=== PATIENT | male | born 1940 | race Caucasian/White ===

== ENCOUNTER → 2024-01-19 10:42 | Outpatient (BNVA) | payer MEDICARE, SELFPAY | PROVIDERS: PCP Family Medicine; Visit Provider Family Medicine | DX: I10 Essential (primary) hypertension (principal); E78.5 Hyperlipidemia, unspecified; E89.0 Postprocedural hypothyroidism; Z85.850 Personal history of malignant neoplasm of thyroid; K29.50 Unspecified chronic gastritis without bleeding | CPT/HCPCS: 80048; 84439; 84443; 84481; 85025 ==

== ENCOUNTER → 2024-06-04 15:06 | Outpatient (BNVA) | payer MEDICARE, SELFPAY | PROVIDERS: PCP Family Medicine; Visit Provider Family Medicine | DX: D75.1 Secondary polycythemia (principal); I10 Essential (primary) hypertension; K29.50 Unspecified chronic gastritis without bleeding | CPT/HCPCS: 82728; 83540; 84466; 85025 ==

== ENCOUNTER 2024-11-01 05:00 | Outpatient (RCR) | payer MEDICARE, SELFPAY | END 2024-11-30 23:59 | disposition home or self-care (01) | LOC: MPT 05:00 | PROVIDERS: PCP Family Medicine; Visit Provider Family Medicine | DX: M17.0 Bilateral primary osteoarthritis of knee (principal) | CPT/HCPCS: 97110; 97112; 97162 ==

== ENCOUNTER 2024-11-08 16:02 | Outpatient (CLI) | payer MEDICARE, SELFPAY | END 2024-11-08 16:03 | disposition home or self-care (01) | PROVIDERS: PCP Family Medicine; Visit Provider Family Medicine | DX: I10 Essential (primary) hypertension (principal); E78.2 Mixed hyperlipidemia; E89.0 Postprocedural hypothyroidism; R53.83 Other fatigue | CPT/HCPCS: 80053; 80061; 83036; 84439; 84443; 84481; 85025 ==

== ENCOUNTER → 2024-11-10 10:36 | Outpatient (BNVA) | payer MEDICARE, SELFPAY | PROVIDERS: PCP Family Medicine; Visit Provider Family Medicine | DX: I10 Essential (primary) hypertension (principal); E78.2 Mixed hyperlipidemia; E89.0 Postprocedural hypothyroidism; R53.83 Other fatigue | CPT/HCPCS: 80053; 80061; 84439; 84443; 84481 ==

== ENCOUNTER 2024-11-17 12:37 | Outpatient (CLI) | payer MEDICARE, SELFPAY ==
--- NOTE | 2024-11-17 13:30 | CT_ITS ---
WS: [id number] CT HEAD NONCONTRAST HISTORY: unable to bring thoughts in head to paper or speech; r/o CVA TECHNIQUE: Contiguous axial imaging performed through the brain. Bone and soft tissue windows. Sagittal and coronal reformats reviewed. All CT scans at [facility] use at least one of these dose optimization techniques: automated exposure control; mA and/or kV adjustment per patient size (includes targeted exams where dose is matched to clinical indication); or iterative reconstruction. DLP: 1111.51 mGy.cm COMPARISON: None available. Patient has bilateral cochlear implants which are causing significant artifact through the posterior brain. As visualized no acute intracranial hemorrhage or edema. No large territory infarct. Very limited evaluation of the posterior fossa by artifact. There is probably a small lacunar infarct in the RIGHT cerebrum. Moderate symmetric atrophy with moderate small vessel ischemic type changes. 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 Ventricles: Normal size with no hydrocephalus. Dense calcification in the distal vertebral arteries and in the intracranial carotid arteries. Paranasal sinuses: As visualized are clear. Mastoid air cells: Postoperative changes involving the mastoid air cells with bilateral cochlear implants. Calvarium and scalp: Skull is intact with no soft tissue edema or swelling. CT/CT head wo con* [id number] IMPRESSION: 1. Status post bilateral cochlear implants causing significant beam hardening artifact through portions of the brain. 2. Moderate symmetric cerebral and cerebral atrophy with moderate small vessel changes. 3. 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 4. Remote RIGHT cerebellar lacunar infarct.
--- NOTE | 2024-11-17 13:30 | CT_ITS ---
WS: [id number] CT chest wo con [id number] HISTORY: chronic cough; hx of thoracotomy TECHNIQUE: Axial imaging performed through the thorax. Coronal and sagittal reformats are submitted. All CT scans at [facility] use at least one of these dose optimization techniques: automated exposure control; mA and/or kV adjustment per patient size (includes targeted exams where dose is matched to clinical indication); or iterative reconstruction. CONTRAST: None DLP: 420.65 mGy.cm COMPARISON: None available. Lungs and central airway: Lung volumes are slightly reduced. Mild motion artifact. Dependent changes and chronic appearing atelectasis and bronchial wall thickening bilaterally in the lower lung cano. Mild atelectasis with bronchial wall thickening in the RIGHT middle lobe. Mild changes of bronchiectasis in the lower lung cano associated with the bronchial wall thickening and chronic atelectasis. Subtle area of groundglass attenuation RIGHT upper lobe, image 27 series 4. Additional area of groundglass attenuation in the anterior LEFT upper lobe, image 19 series 4. Pleura: Normal. No pleural effusion. Heart and pericardium: Markedly enlarged heart. Prior aortic valve replacement. LEFT subclavian pacer with wires noted in the RIGHT heart. No pericardial effusion. Prior CABG. Dense coronary artery calcifications. Mediastinum and rowan: No mediastinum or hilar adenopathy. Vessels: Marked atherosclerosis thoracic aorta. Calcified plaque in the aorta with extension into the great vessels. Normal size pulmonary artery. Moderate suprarenal aortic calcifications in the abdomen. Chest wall and lower neck: LEFT subclavian pacer generator overlies the LEFT upper thorax. Upper abdomen: Cholelithiasis without acute cholecystitis. Bilateral superior pole renal cysts. The largest on the RIGHT 3.5 cm. Fatty atrophy and replacement of the pancreas. Osseous structures: No destructive process. CT/CT chest wo con [id number] IMPRESSION: 1. Bronchial wall thickening with areas of subsegmental atelectasis and bronch iectasis bilaterally in the lower lobes and RIGHT middle lobe. Suspect chronic bronchitis. 2. There are a few scattered areas of groundglass attenuation which may be rel ated to pneumonitis. 3. Markedly enlarged heart with prior aortic valve replacement. 4. Prior CABG and LEFT subclavian pacer.
== END 2024-11-17 12:38 | disposition home or self-care (01) ==
PROVIDERS: PCP Family Medicine; Visit Provider Family Medicine
DX: R05.3 Chronic cough (principal); I69.928 Other speech and language deficits following unspecified cerebrovascular disease; I51.7 Cardiomegaly; I70.0 Atherosclerosis of aorta; J98.09 Other diseases of bronchus, not elsewhere classified; J98.11 Atelectasis; R91.8 Other nonspecific abnormal finding of lung field; Z95.4 Presence of other heart-valve replacement; Z95.1 Presence of aortocoronary bypass graft; Z96.21 Cochlear implant status; G31.89 Other specified degenerative diseases of nervous system; R93.89 Abnormal findings on diagnostic imaging of other specified body structures; I63.532 Cerebral infarction due to unspecified occlusion or stenosis of left posterior cerebral artery; I63.81 Other cerebral infarction due to occlusion or stenosis of small artery
CPT/HCPCS: 70450; 71250

== ENCOUNTER 2024-12-23 09:29 | Outpatient (RCR) | payer MEDICARE, SELFPAY | END 2024-12-24 08:30 | disposition home or self-care (01) | LOC: MPT 09:29 | PROVIDERS: PCP Family Medicine; Visit Provider Family Medicine | DX: M17.0 Bilateral primary osteoarthritis of knee (principal) | CPT/HCPCS: 97110; 97112 ==

== ENCOUNTER 2025-01-26 12:33 | Emergency (ER) | payer MEDICARE, SELFPAY ==
[2025-01-26 12:36] VITALS: BP 113/72; PULSE 70; TEMP 36.4; O2SAT 93
--- OUTSIDE RECORDS SUMMARY | 2025-01-26 12:41 | XMS_ITS | Clinical Summary ---
Author Organization [facility] Address [address] 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 10/04/2020 Sensorineural hearing loss, bilateral 02/06/2010 Encounters Date Type Department Care Team Description 01/18/2025 External Device Data STL ABSTRACTION Provider, Abstract 01/11/2025 1:00 PM SLIDE DEVELOPER Procedure visit [facility] [address] [place] [address] [place] [address] Kaci Teran AU.D Sensorineural hearing loss, bilateral (Primary Dx); 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 from Last 3 Months Immunizations Immunization Administration Dates Next Due HIB, Unspecified Formulation 04/01/2005 Social History Tobacco Use Types Packs/Day Years Used Date Smoking Tobacco: Never Assessed Sex and Gender Information Value Date Recorded Sex Assigned at Not on file Legal Sex Male 8:48 AM SLIDE DEVELOPER Gender Identity Not on file Sexual Orientation Not on file Plan of Treatment Upcoming Encounters Date Type Department Care Team (Late st Contact Info) Description 01/09/2026 2:00 PM SLIDE DEVELOPER Office Visit [facility] [address] [place] [address] [place] [address] Kaci Teran AU.D [address] [place], [place] [address] Health Maintenance Due Date Last Done Comments DTAP/TDAP/TD VACCINES (1 - Tdap) 10/29/1958 ZOSTER VACCINE (1 of 2) 10/29/1989 RSV VACCINE (60+ or ) (1 - 1-dose 75+ series) 10/29/2014 INFLUENZA VACCINE (#1) 2024 11/16/2022, 2021 COVID-19 Vaccine ( - 2024- season) 2024 12/25/2020, 05/06/2020, 04/08/2020 PNEUMOCOCCAL VACCINE 50+ YEARS Completed 10/22/2023 , 01/31/2005 Insurance MEDICARE PART A AND B [facility] [id number] Care Teams Order Booker Relationship Specialty Start Date End Date Pooja Pandya MD [address] [place] [address] PCP - General 04/01/05
--- OUTSIDE RECORDS SUMMARY | 2025-01-26 12:41 | XMS_ITS | Encounter Summary ---
Author Organization [facility] Address [address] [place] [address] Care Team Providers Care Kindergarten Aide Name Role Phone Pooja Pandya MD Primary Care Provider [phone] Encounter Details Date Type Department Care Team (Latest Contact Info) Description 05/29/2005 Outpatient Historical [facility] Ear, Nose and Throat E [place] 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
--- OUTSIDE RECORDS SUMMARY | 2025-01-26 12:41 | XMS_ITS | Encounter Summary ---
Author Organization [facility] Address [address] [place] [address] Care Team Providers Care Drying Oven Tender Name Role Phone Pooja Pandya MD Primary Care Provider [phone]- [phone] Encounter Details Date Type Department Care Team (Latest Contact Info) Description 07/15/2006 Outpatient Historical [facility] [address] [place] [address] [facility] Precordial Pain (Primary Dx) Social History Tobacco Use Types Packs/Day Years Used Date Smoking Tobacco: Never Assessed Sex and Gender Information Value Date Recorded Sex Assigned at Not on file 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
--- OUTSIDE RECORDS SUMMARY | 2025-01-26 12:41 | XMS_ITS | Encounter Summary ---
Author Organization [facility] Address [address] [place] [address] Care Team Providers Care Flatbed Company Driver Name Role Phone Pooja Pandya MD Primary Care Provider [phone] Encounter Details Date Type Department Care Team (Late st Contact Info) Description 05/23/2005 Outpatient Historical [facility] Ear, Nose and Throat [address] [place] 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
--- OUTSIDE RECORDS SUMMARY | 2025-01-26 12:42 | XMS_ITS | Encounter Summary ---
Author Organization [facility] Address [address] [place] [address] Care Team Providers Care Car Rental Agent Name Role Phone Pooja Pandya MD Primary Care Provider Encounter Details Date Type Department Care Team (Latest Contact Info) Description 04/10/2005 Outpatient Historical [facility] Ear, Nose and Throat E [place] [address] 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
--- OUTSIDE RECORDS SUMMARY | 2025-01-26 12:42 | XMS_ITS | Encounter Summary ---
Author Organization [facility] Address [address] [place] [address] Care Team Providers Care Completions Manager Name Role Phone Pooja Pandya MD Primary Care Provider [phone]- [phone] Encounter Details Date Type Department Care Team (Latest Contact Info) Description 06/24/2005 Outpatient Historical [facility] Ear, Nose and Throat [address] [place] 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
--- OUTSIDE RECORDS SUMMARY | 2025-01-26 12:42 | XMS_ITS | Encounter Summary ---
Author Organization [facility] Address [address] [place] [address] Care Team Providers Care Second Cutter Name Role Phone Pooja Pandya MD Primary Care Provider Encounter Details Date Type Department Care Team (Latest Contact Info) Description 03/07/2005 Outpatient Historical [facility] Ear, Nose and Throat [address] [place] 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
--- OUTSIDE RECORDS SUMMARY | 2025-01-26 12:42 | XMS_ITS | Encounter Summary ---
Author Organization [facility] Address [address] [place] [address] Care Team Providers Care Turkey Picker Name Role Phone Pooja Pandya MD Primary Care Provider [phone]- [phone] Encounter Details Date Type Department Care Team (Latest Contact Info) Description 12/10/2004 Outpatient Historical [facility] [address] 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
--- OUTSIDE RECORDS SUMMARY | 2025-01-26 12:42 | XMS_ITS | Encounter Summary ---
Author Organization [facility] Address [address] [place] [address] Care Team Providers Care Scheduling Specialist Name Role Phone Pooja Pandya MD Primary Care Provider [phone]- [phone] Encounter Details Date Type Department Care Team (Latest Contact Info) Description 05/22/2005 Outpatient Historical [facility] Ear, Nose and Throat [address] [place] 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
--- OUTSIDE RECORDS SUMMARY | 2025-01-26 12:42 | XMS_ITS | Encounter Summary ---
Author Organization [facility] Address [address] [place] [address] Care Team Providers Care Cooler Worker Name Role Phone Pooja Pandya MD Primary Care Provider Encounter Details Date Type Department Care Team (Latest Contact Info) Description 09/23/2006 Outpatient Historical [facility] Ear, Nose and Throat E [place] [address] 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
--- OUTSIDE RECORDS SUMMARY | 2025-01-26 12:42 | XMS_ITS | Encounter Summary ---
Author Organization [facility] Address [address] [place] [address] Care Team Providers Care Recreational Vehicle Resort Manager Name Role Phone Pooja Pandya MD Primary Care Provider [phone] Encounter Details Date Type Department Care Team (Latest Contact Info) Description 04/26/2005 Outpatient Historical [facility] [address] [place] [address] Butch Ogden MD [address] [phone] PREOP CARDIOVASC EXAM (Primary Dx) Social History Tobacco Use Types Packs/Day Years Used Date Smoking Tobacco: Never Assessed Sex and Gender Information Value Date Recorded Sex Assigned at Not on file Legal Sex Male 4:06 AM INDUSTRIAL RELATIONS REPRESENTATIVE Gender Identity Not on file Sexual Orientation Not on file documented as of this encounter Plan of Treatment Not on file documented as of this encounter Procedures Procedure Name Priority Date/Time Associated Diagnosis Comments PT AND APTT Routine 04/26/2005 11:05 AM INDUSTRIAL RELATIONS REPRESENTATIVE PLATELET FUNCTION TEST Routine 6 11:05 AM INDUSTRIAL RELATIONS REPRESENTATIVE COMPREHENSIVE METABOLIC PANEL Routine 04/26/2005 11:05 AM INDUSTRIAL RELATIONS REPRESENTATIVE documented in this encounter Results * PLATELET FUNCTION TEST (04/26/2005 11:05 AM INDUSTRIAL RELATIONS REPRESENTATIVE) PLATELET FUNCTION, COLLAGEN/EPINEPHRI NE 104 71 - 158 Secs INTERFACE SYSTEM Comment: Platelet counts <100,000 or >500,000 and Hematocrits <30% may cause abnormal platelet function results. Interpretation: Col/Epi Normal: Normal platelet function assay, no further testing performed. Col/Epi High Col/ADP Normal: Aspirin-like defect present. Aspirin-like defects can be caused by any medication containing acetyl salicylic acid and by the numerous prescription, [id number] medications and herbal preparations that inhibit platelet function. Col/Epi High Col/ADP High: Abnormal platelet function present. This abnormal platelet function pattern may be due to an inherited disorder such as von Willebrand's disease, Glanzmann's thrombasthenia, or Dinh-Soulier syndrome. Note that approximately 25% of patients taking aspirin, or any medicine containing acetyl salicylic acid, will have abnormal results with both collagen/epinephrine and collagen/ADP. 04/26/2005 11:0 5 AM INDUSTRIAL RELATIONS REPRESENTATIVE us Historical Provider HEMATOLOGY ORDERABLES Final Result INTERFACE SYSTEM Refer to clinic/hospital department * PT AND APTT (04/26/2005 11:05 AM INDUSTRIAL RELATIONS REPRESENTATIVE) PROTIME 12.9 12.6 - 14.9 Secs INTERFACE SYSTEM Comment: As of 04 note change in normal range. INR 0.9 INTERFACE SYSTEM Comment: Expected Values for INR: DVT/PE Goal INR 2.5; range 2.0 - 3.0 Valve Replacement Tissue Goal INR 2.5; range 2.0 - 3.0 Mechanical Goal INR 3.0; range 2.5 - 3.5 POST-TX Goal INR 2.5; range 2.0 - 3.0 or Goal 3.0; range 2.5 - 3.5 Atrial Fibrillation Goal INR 2.5; range 2.0 - 3.0 Ischemic Stroke Goal INR 2.5; range 2.0 - 3.0 For additional information see Guidelines for Anticoagulation available from the pharmacy [facility] PTT 29.2 21.5 - 34.4 Secs INTERFACE SYSTEM Comment: Therapeutic Range: Hi-level PE/DVT heparin protocol 90.1 -110 sec Lo-level PE/DVT heparin protocol 75.1 - 95 sec Cardiac Heparin Protocol 85.1 - 100 sec Neuro Heparin Protocol 70.1 - 85 sec As of 03/27/05 note change in APTT Normal Range. 04/26/2005 11:0 5 AM INDUSTRIAL RELATIONS REPRESENTATIVE us Historical Provider HEMATOLOGY ORDERABLES Final Result INTERFACE SYSTEM Refer to clinic/hospital department * COMPREHENSIVE METABOLIC PANEL (04/26/2005 11:05 AM INDUSTRIAL RELATIONS REPRESENTATIVE) GLUCOSE 97 70 - 110 mg/dL INTERFACE SYSTEM BUN 14 9 - 20 mg/dL INTERFACE SYSTEM CREATININE 0.7 0.7 - 1.5 mg/dL INTERFACE SYSTEM SODIUM 141 136 - 145 mEq/L INTERFACE SYSTEM POTASSIUM 4.2 3.5 - 5.0 mEq/L INTERFACE SYSTEM CHLORIDE 106 95 - 110 mEq/L INTERFACE SYSTEM CO2 30 22 - 32 mmol/l INTERFACE SYSTEM ANION GAP 9 9 - 20 mEq/L INTERFACE SYSTEM OSMOLALITY, CALCULATED 290 275 - 295 mOsm/Kg INTERFACE SYSTEM CALCIUM 9.8 8.4 - 10.5 mg/dL INTERFACE SYSTEM TOTAL PROTEIN 7.9 6.3 - 8.2 g/dL INTERFACE SYSTEM ALBUMIN 4.8 3.5 - 5.0 g/dL INTERFACE SYSTEM GLOBULIN (CALC) 3.1 2.4 - 3.9 g/dL INTERFACE SYSTEM ALBUMIN/GLOBULIN RATIO 1.5 1.0 - 2.3 INTERFACE SYSTEM ALKALINE PHOSPHATASE 95 25 - 100 U/L INTERFACE SYSTEM Comment: As of 05 the [facility] has changed testing methods. The new reference range is 25-100 The old referance range was 38-126 AST 22 8 - 33 U/L INTERFACE SYSTEM Comment: As of 05 the [facility] has changed testing methods. The new reference range is 8-33 The old referance range was Males 17-59 Females 14-36 ALT 31 21 - 72 IU/L INTERFACE SYSTEM Comment: As of 05 the [facility] has changed testing methods. The new reference range is 4-36 The old referance range was Males 21-72 Females 9-52 BILIRUBIN TOTAL 0.8 0.3 - 1.2 mg/dL INTERFACE SYSTEM Comment: As of 05 the [facility] has changed testing methods. The new reference range is 0.3-1.2 The old referance range was 0.2-1.4 04/26/2005 11:0 5 AM INDUSTRIAL RELATIONS REPRESENTATIVE us Historical Provider CHEMISTRY ORDERABLES Final R esult INTERFACE SYSTEM Refer to clinic/hospital department documented in this encounter Visit Diagnoses Diagnosis Pre-operative cardiovascular examination- Primary documented in this encounter Care Teams Recreational Vehicle Resort Manager Relationship Specialty Start Date End Date Pooja Pandya MD [address] [place] [address] PCP - General 04/01/05 documented as of this encounter
--- OUTSIDE RECORDS SUMMARY | 2025-01-26 12:42 | XMS_ITS | Encounter Summary ---
Author Organization [facility] Address 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 [place] [phone] documented as of this encounter Visit Diagnoses Not on filedocumented in this encounter Care Teams Auto Body Painter Relationship Specialty Start Date End Date Pooja Pandya MD [address] [place] [address] PCP - General 04/01/05 documented as of this encounter
--- OUTSIDE RECORDS SUMMARY | 2025-01-26 12:42 | XMS_ITS | Encounter Summary ---
Author Organization [facility] Address [address] [place] [address] Care Team Providers Care Pheresis Specialist Name Role Phone Pooja Pandya MD Primary Care Provider [phone]- [phone] Encounter Details Date Type Department Care Team (Latest Contact Info) Description 08/23/2005 Outpatient Historical [facility] Ear, Nose and Throat [address] 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
--- OUTSIDE RECORDS SUMMARY | 2025-01-26 12:42 | XMS_ITS | Encounter Summary ---
Author Organization [facility] Address [address] [place] [address] Care Team Providers Care Auction Assistant Name Role Phone Pooja Pandya MD Primary Care Provider [phone]- [phone] Encounter Details Date Type Department Care Team (Late st Contact Info) Description 04/01/2005 Outpatient Historical [facility] Neuro Psychology [facility] [place] [phone] Corey Fuller, PhD [address] [phone] SENSORNEUR HEAR LOSS NOS (Primary Dx) Social History Tobacco Use Types Packs/Day Years Used Date Smoking Tobacco: Never Assessed Sex and Gender Information Value Date Recorded Sex Assigned at Not on file 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
--- OUTSIDE RECORDS SUMMARY | 2025-01-26 12:42 | XMS_ITS | Encounter Summary ---
Author Organization [facility] Address [address] [place] [address] Care Team Providers Care Embroiderer Name Role Phone Pooja Pandya MD Primary Care Provider [phone] Encounter Details Date Type Department Care Team (Latest Contact Info) Description 01/15/2006 Outpatient Historical [facility] Ear, Nose and Throat [address] [place] 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
--- OUTSIDE RECORDS SUMMARY | 2025-01-26 12:42 | XMS_ITS | Clinical Summary ---
Author Organization [facility] Address [address] 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
--- OUTSIDE RECORDS SUMMARY | 2025-01-26 12:42 | XMS_ITS | Encounter Summary ---
Author Organization [facility] Address [address] [place] [address] Care Team Providers Care Fluorescent Lamp Replacer Name Role Phone Pooja Pandya MD Primary Care Provider [phone] Encounter Details Date Type Department Care Team (Latest Contact Info) Description 04/01/2005 Outpatient Historical [facility] Imaging Services [address] [place] [phone] Butch Ogden MD [address] [phone] DIS MID EAR/MASTOID NEC (Primary Dx) Social History Tobacco Use Types Packs/Day Years Used Date Smoking Tobacco: Never Assessed Sex and Gender Information Value Date Recorded Sex Assigned at Not on file 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 Gender Identity Not on file Sexual Orientation Not on file documented as of this encounter Plan of Treatment Not on file documented as of this encounter Procedures Procedure Name Priority Date/Time Associated Diagnosis Comments CT TEMPORAL BONE WO CONTRAST Routine 04/01/2005 12:01 AM COFFEE BAR ATTENDANT documented in this encounter Results * CT TEMPORAL BONE WO CONTRAST (04/01/2005 12:01 AM COFFEE BAR ATTENDANT) Anatomical Region Laterality Modality Head Other 04/01/2005 12:0 1 AM COFFEE BAR ATTENDANT Narrative 04/01/2005 12:[address] BAR [address] CT TEMPORAL BONE WITHOUT CONTRAST DATE: 04/01/2005. HISTORY: 64-year-old male with sensorineural hearing loss. Right cochlear implant. TECHNIQUE: Conventional axial and direct coronal. FINDINGS: There are changes of a right mastoidectomy with a cochlear implant in place. Implant lead terminates within the proximal basal turn of the cochlea. There are small amounts of layering fluid and/or mucosal thickening within the surgerized right mastoid with small air-fluid levels present inferiorly. Middle and inner ear structures appear grossly normal bilaterally. There is some slight subjective increased ossification within the middle and apical turns of the cochlea bilaterally which could reflect labyrinthine ossificans. Middle ear and mastoid are clear on the left. Right-sided cochlear implant. Stimulator lead terminates within the proximal basal turn of the cochlea. There are small amounts of fluid accumulation and/or mucosal thickening within the surgerized right mastoid, nonspecific. Left middle ear and mastoid appear clear. Subjective increased ossification within the membranous cochlea bilaterally could reflect labyrinthine ossificans. 1422 [id number] Dictated By: Geo Aj D.O. Electronically Signed By: Geo Aj D.O. Date Signed: 04/01/05 [facility] Procedure Note 01/19/2009 CT TEMPORAL BONE WITHOUT CONTRAST DATE: 04/01/2005. HISTORY: 64-year-old male with sensorineural hearing loss. Right cochlear implant. TECHNIQUE: Conventional axial and direct coronal. FINDINGS: There are changes of a right mastoidectomy with a cochlear implant inplace. Implant lead terminates within the proximal basal turn of the cochlea. There are small amounts oflayering fluid and/or mucosal thickening within the surgerized right mastoid with small air-fluid levelspresent inferiorly. Middle and inner ear structures appear grossly normal bilaterally. There is someslight subjective increased ossification within the middle and apical turns of the cochlea bilaterallywhich could reflect labyrinthine ossificans. Middle ear and mastoid are clear on the left. Right-sided cochlear implant. Stimulator lead terminates within theproximal basal turn of the cochlea. There are small amounts of fluid accumulation and/or mucosal thickeningwithin the surgerized right mastoid, nonspecific. Left middle ear and mastoid appear clear. Subjectiveincreased ossification within the membranous cochlea bilaterally could reflect labyrinthine ossificans. 1422 1545 Dictated By: Geo Aj D.O. Electronically Signed By: Geo Aj D.O. Date Signed: 04/01/05 [facility] us Butch Ogden MD CT ORDERABLES Final Result documented in this encounter Visit Diagnoses Diagnosis Other disorders of middle ear and mastoid(385.89)- Primary Other disorders of middle ear and mastoid documented in this encounter Care Teams Fluorescent Lamp Replacer Relationship Specialty Start Date End Date Pooja Pandya MD [address] [place] [address] PCP - General 04/01/05 documented as of this encounter
--- OUTSIDE RECORDS SUMMARY | 2025-01-26 12:42 | XMS_ITS | Encounter Summary ---
Author Organization [facility] Address [address] [place] [address] Care Team Providers Care Police Manager Name Role Phone Pooja Pandya MD Primary Care Provider Encounter Details Date Type Department Care Team (Latest Contact Info) Description 04/29/2005 Outpatient Historical [facility] Operating [facility] [address] [place] [address] Butch Ogden MD [address] [phone] MIXED HEARING LOSS (Primary Dx) Social History Tobacco Use Types Packs/Day Years Used Date Smoking Tobacco: Never Assessed Sex and Gender Information Value Date Recorded Sex Assigned at Not on file 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
--- OUTSIDE RECORDS SUMMARY | 2025-01-26 12:42 | XMS_ITS | Encounter Summary ---
Author Organization [facility] Address [address] [place] [address] Care Team Providers Care Radiologic Technologist Name Role Phone Pooja Pandya MD Primary Care Provider [phone]- [phone] Encounter Details Date Type Department Care Team (Latest Contact Info) Description 02/14/2005 Outpatient Historical [facility] Ear, Nose and Throat [address] [place] 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
--- OUTSIDE RECORDS SUMMARY | 2025-01-26 12:42 | XMS_ITS | Encounter Summary ---
Author Organization [facility] Address [address] [place] [address] Care Team Providers Care Nursing Technician Name Role Phone Pooja Pandya MD Primary Care Provider [phone]- [phone] Encounter Details Date Type Department Care Team (Latest Contact Info) Description 03/07/2005 Outpatient Historical [facility] Ear, Nose and Throat [address] [place] 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
--- OUTSIDE RECORDS SUMMARY | 2025-01-26 12:42 | XMS_ITS | Encounter Summary ---
Author Organization [facility] Address [address] [place] [address] Care Team Providers Care Casino Worker Name Role Phone Pooja Pandya MD Primary Care Provider [phone] Encounter Details Date Type Department Care Team (Latest Contact Info) Description 04/29/2005 Outpatient Historical [facility] Ear, Nose and Throat [address] [place] 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
--- NOTE | 2025-01-26 13:09 | CTR_ITS ---
PROCEDURE INFORMATION: Exam: CT Head Without Contrast Exam date and time: 01/26/2025 1:32 PM Age: 84 years old Clinical indication: Injury or trauma; Fall TECHNIQUE: Imaging protocol: Computed tomography of the head without contrast. Radiation optimization: All CT scans at this facility use at least one of these dose optimization techniques: automated exposure control; mA and/or kV adjustment per patient size (includes targeted exams where dose is matched to clinical indication); or iterative reconstruction. COMPARISON: CT head wo con* [id number] 11/17/2024 1:03 PM RADIATION DOSE METRICS: Total DLP (mGy-cm): 1169.8 FINDINGS: Brain: No intracranial mass, acute hemorrhage, acute major territorial infarct, midline shift, or extra-axial collection. There is patchy hypoattenuation in the periventricular white matter of both cerebral hemispheres which are nonspecific but most likely related to chronic ischemic small vessel disease. 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 There is an old infarct of the left posterior parietal lobe. Cerebral ventricles: Proportional prominence of the ventricles and cortical sulci are seen. Paranasal sinuses: Visualized sinuses are unremarkable. No fluid levels. Mastoid air cells: Postoperative changes are seen with bilateral cochlear implants. Bones: Unremarkable. No acute fracture. Soft tissues: Unremarkable. CT/CT head wo con* [id number] IMPRESSION: 1. No acute intracranial abnormality. 2. 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 3. Age-appropriate atrophy. 4. Mild chronic white matter disease.
--- NOTE | 2025-01-26 13:09 | CTR_ITS ---
PROCEDURE INFORMATION: Exam: CT Maxillofacial Without Contrast Exam date and time: 01/26/2025 1:32 PM Age: 84 years old Clinical indication: Injury or trauma; Fall; Additional info: Fall/trauma TECHNIQUE: Imaging protocol: Computed tomography of the face without contrast. Radiation optimization: All CT scans at this facility use at least one of these dose optimization techniques: automated exposure control; mA and/or kV adjustment per patient size (includes targeted exams where dose is matched to clinical indication); or iterative reconstruction. COMPARISON: CT head wo con* [id number] 11/17/2024 1:03 PM RADIATION DOSE METRICS: Total DLP (mGy-cm): 657.5 FINDINGS: Paranasal sinuses: There is mucosal thickening in the ethmoid air cells. There is rightward nasal septal deviation without nasal septal spur. Orbital cavities: Orbits are normal. Globes are unremarkable. Bones: There are bilateral nasal bone fractures. Soft tissues: Unremarkable. CT/CT facial bones wo con* [id number] IMPRESSION: 1. No evidence for orbital wall, floor, or maxillary sinus fracture. 2. Mucosal thickening in the ethmoid air cells. 3. Bilateral nasal bone fractures.
--- NOTE | 2025-01-26 13:09 | CTR_ITS ---
PROCEDURE INFORMATION: Exam: CT Cervical Spine Without Contrast Exam date and time: 01/26/2025 1:32 PM Age: 84 years old Clinical indication: Injury or trauma; Fall; Additional info: Fall/trauma TECHNIQUE: Imaging protocol: Computed tomography of the cervical spine without contrast. Radiation optimization: All CT scans at this facility use at least one of these dose optimization techniques: automated exposure control; mA and/or kV adjustment per patient size (includes targeted exams where dose is matched to clinical indication); or iterative reconstruction. COMPARISON: CT chest wo con [id number] 11/17/2024 1:08 PM RADIATION DOSE METRICS: Total DLP (mGy-cm): 268.8 FINDINGS: Bones: No acute cervical spine fracture or traumatic subluxation. There is anterior marginal osteophytosis at C3-C4, C4-C5, C5-C6, and C6-C7. There is straightening of the normal cervical lordosis. Disc spaces/neural foramina/spinal canal: There is no spinal canal or neural foraminal stenosis. The facet joints are intact. Lungs: Lung apices are normal. Soft tissues: Unremarkable. CT/CT cervical spin wo con* [id number] IMPRESSION: 1. No acute cervical spine fracture. 2. Degenerative spondylosis as above.
--- NOTE | 2025-01-26 13:24 | W.ED.HEATRA ---
HPI - Head Injury General: Chief complaint: Head Injury Stated complaint: Fall- hit L side of face nose bleeding Time Seen by Provider: 01/26/25 12:52 Source: patient and family Mode of arrival: wheelchair Limitations: no limitations History of Present Illness: Patient is an 84-year-old male presents to ED today along with his daughter for evaluation of a head/facial injury that he sustained just prior to arrival after falling. Daughter states he has been having issues with his gait/balance for approximately 6 months now. He has been doing physical therapy for this. Patient states he was on an incline and states when I get going downhill I cannot stop myself thus fell forward and struck his head/face on the concrete. He states he sustained a bloody nose as well as abrasions to the left side of his face. There was no LOC. He is on anticoagulation. Daughter states his tetanus is up-to-date. He was able to get up and ambulate after the fall with help from his . He is not complaining of any back or extremity discomfort. MD Complaint: head injury, fall and other (facial injury) Onset (ago): hour(s) Mechanism of Injury: fall Place: home Loss of Consciousness: no Location of injury: face Severity: moderate Radiation: none Other Injuries: none Context: other anticoagulant use (apixaban) Associated symptoms: Reports no associated symptoms and neck pain; Deny nausea, syncope or vomiting Related Data Home Medications ?Medication ?Instructions ?Recorded ?Confirmed aspirin 81 mg tablet,delayed 81 mg PO DAILY 01/19/24 01/26/25 release acetaminophen 650 mg 1,300 mg PO Q8H fev 06/17/24 01/26/25 tablet,extended release (Tylenol Arthritis Pain) carvedilol 12.5 mg tablet 12.5 mg PO BID 01/26/25 01/26/25 Previous Rx's ?Medication ?Instructions ?Recorded levothyroxine 125 mcg tablet 125 mcg PO DAILY #90 tabs 01/20/24 apixaban 5 mg tablet (Eliquis) 5 mg PO BID #60 tabs 06/04/24 atorvastatin 80 mg tablet 80 mg PO DAILY #90 tabs 06/04/24 spironolactone 25 mg tablet 25 mg PO DAILY #90 tabs 06/04/24 tamsulosin 0.4 mg capsule 0.4 mg PO DAILY #100 caps 06/04/24 lisinopril 5 mg tablet 5 mg PO DAILY #90 tabs 12/27/24 ipratropium bromide 21 mcg (0.03 2 spray intranasal TID #30 mL 12/30/ %) nasal spray lorazepam 0.5 mg tablet 0.5 mg PO .qpm PRN sleep 90 days 01/07/25 #90 tabs omeprazole 40 mg capsule,delayed See Rx Instructions .Route 01/10/25 release .COMPLEX #90 caps Allergies Allergy/AdvReac Type Severity Reaction Status Date / Time doxycycline Allergy Unknown Verified 01/26/25 12:43 Review of Systems Eyes: Reports: other (edema around L periorbit); Denies: change in vision, blurry vision, photophobia, eye discharge, floaters or seeing flashes ENMT: Reports: epistaxis; Denies: throat pain, odynophagia, ear or mastoid pain, ear discharge, nasal discharge or sinus pain Card: Denies: chest pain, palpitations, lightheadedness, syncope or pre-syncope Resp: Denies: dyspnea or pain on inspiration GI: Denies: abdominal pain, nausea or vomiting : Denies: flank pain or hematuria Musc: Reports: neck pain; Denies: back pain, extremity pain, extremity swelling or joint pain Skin/Breast: Reports: other (facial abrasions) Neuro: Denies: headache(s), numbness in extremities, weakness in extremities, sensory changes or dizziness [facility] ED PFSH: Medical History 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 seen on head imaging 11.15.24 Speech and language deficits, late effect of cerebrovascular disease Polycythemia Sensorineural hearing loss (SNHL) of both ears Nephrolithiasis Gout Oxygen dependent restarting 2L at night CAD (coronary artery disease), [place] coronary artery cardiac cath 06/12 mild dz Systolic CHF with reduced left ventricular function, NYHA class 2 Complete AV block Non-ischemic cardiomyopathy 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 Primary osteoarthritis of both knees Hypertension Hx of thyroid cancer Gastritis, chronic BPH (benign prostatic hyperplasia) Post-surgical hypothyroidism Hyperlipidemia COPD (chronic obstructive pulmonary disease) Pacemaker Cochlear implant in place Surgical History History of colon surgery had colectomy for diverticulitis then anastomosis History of elbow surgery right History of cochlear implant History of pacemaker biventricular Cataracts, both eyes History of lung surgery hx of left thoracotomy, bullectomy, decortication, pleurectomy 01/15 H/O thyroidectomy Aortic valve replaced had AV replaced thoracotomy; then TAVR History of appendectomy Family History Father Heart attack Mother Stroke Sister Heart disease Social History Smoking and tobacco/nicotine status: former use of tobacco/nicotine Quit status (tobacco/nicotine): has quit using Year quit tobacco: 2009 Alcohol intake: never Substance/Drug Use: never Household members: spouse Marital status: Number of children: 2 Highest education level completed: Some College, No Degree Current occupational status: retired 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 Physical Exam Const: COMMON NORMALS: no acute distress, average body habitus, patient oriented x3, no limitations, healthy appearing, alert and well nourished GENERAL APPEARANCE: cooperative ORIENTATION/CONSCIOUSNESS: Yes awake, Yes oriented to person, Yes oriented to place and Yes oriented to time HENMT: COMMON NORMALS: normocephalic, atraumatic, external ears normal and TM's normal bilaterally HEAD & SCALP: normal to inspection, normocephalic and atraumatic; no Suarez's sign, no hematoma and no raccoon eyes FACE & SINUS: other (L sided facial abrasions/L periorbital edema; nasal contusion) NOSE: Other nasal findings present (nasal contusion; fresh blood/clot (removed) to R nare-no active epistaxis) EXTERNAL EAR: Yes external ears normal TYMPANIC MEMBRANE: TM's normal bilaterally MOUTH: Normal oral and palatal mucosa present, tongue normal, Normal salivary glands and ducts present, lip abnormal and other (no intraoral injuries noted; lower lip contusion) TEETH & GINGIVA: Yes other (no dental injuries) THROAT: tonsils normal, uvula midline and other (small amount of blood from prior epistaxis noted-no active bleed) Eye: COMMON NORMALS: Equal, round and reactive pupils present and EOMs intact bilaterally GENERAL EYE: appearance normal, both eyes and all related structures and normal light reflex PUPIL: Yes Equal, round and reactive pupils present DIRECT OPHTHALMOSCOPY: Yes normal light reflex Neck/C-Spine: COMMON NORMALS: full ROM GENERAL: Yes normal visual inspection CERVICAL SPINE: Yes cervical ROM normal, No pain with cervical ROM, No Cervical spine tenderness, No step off deformity and No Paracervical muscle tenderness Chest: COMMONS NORMALS: normal inspection of the chest and normal palpation of entire chest wall Resp: COMMON NORMALS: normal respiratory effort and clear to auscultation bilaterally AUSCULTATION: clear to auscultation bilaterally Cardio: COMMON NORMALS: regular rate and regular rhythm RATE: regular rate RHYTHM: regular rhythm GI: COMMON NORMALS: Normal to inspection, nondistended, normoactive bowel sounds present, Soft to palpation, non-tender, No hepatosplenomegaly present and no masses INSPECTION: Yes normal to inspection and No abdominal wall ecchymosis AUSCULTATION: Yes normoactive bowel sounds PALPATION: Yes Soft to palpation and Yes No hepatosplenomegaly present Back/Pelvis: COMMON NORMALS: thoracic and lumbar spine normal to inspection, no thoracic nor lumbar tenderness and thoraco-lumbar ROM normal Extremity: COMMON NORMALS: normal to inspection and full ROM GENERAL: Yes normal exam except as noted Neuro: VICKIE COMA SCALE: document GCS findings [place] coma scale eye opening: Spontaneous [place] coma scale verbal response: Orientated [place] coma scale motor response: Obey commands [place] coma scale total score: 15 COMMON NORMALS: patient oriented x3, CN's II-XII intact bilaterally, moves all extremities, no focal motor deficits and no sensory deficits noted SENSORIUM/ORIENTATION: Yes alert, Yes oriented to person, Yes oriented to place and Yes oriented to time SPEECH: speech normal GAIT: Yes Other gait observations present (pt was able to easily transfer from wheelchair to bed) Skin: COMMON NORMALS: no rashes or lesions noted NARRATIVE SKIN EXAM: see above GENERAL SKIN EXAM: no rashes or lesions noted TRAUMA: abrasion Course Vital Signs: Vital signs: Vital Signs Temperature 97.5 F L 01/26/25 12:36 Pulse Rate 70 01/26/25 12:36 Blood Pressure 113/72 01/26/25 12:36 Pulse Oximetry 93 01/26/25 12:36 Oxygen Delivery Me thod Room Air 01/26/25 12:36 MDM - Head Injury Medcial Decision Making Patient is a nice 84-year-old male here after a fall down an incline. He reports striking his face/head. CT imaging of his head, cervical spine, and facial bones were obtained. He was found to have bilateral nasal bone fractures. He has no active epistaxis. Tetanus is up-to-date. No septal hematoma. Will place case management referral to get him follow-up with ENT. He had no other complaints to warrant additional imaging. Patient will be allowed discharge. Return ED precautions discussed. Differential Diagnosis Likely concussion without loss of consciousness, closed head injury and concussion with loss of consciousness Medical Records I reviewed the patient's medical records. Lab Data Radiology Impressions Cervical Spine CT 01/26/25 13:09 IMPRESSION: 1. No acute cervical spine fracture. 2. Degenerative spondylosis as above. Face CT 01/26/25 13:09 IMPRESSION: 1. No evidence for orbital wall, floor, or maxillary sinus fracture. 2. Mucosal thickening in the ethmoid air cells. 3. Bilateral nasal bone fractures. Head CT 01/26/25 13:09 IMPRESSION: 1. No acute intracranial abnormality. 2. 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 3. Age-appropriate atrophy. 4. Mild chronic white matter disease. All radiology interpretation(s) finalized by discharge Discharge Plan Discharge Patient Disposition: Home Clinical Impression: Fall Qualifiers: Encounter type: initial encounter Qualified Code(s): W19.XXXA - Unspecified fall, initial encounter Abrasion of face Qualifiers: Encounter type: initial encounter Qualified Code(s): S00.81XA - Abrasion of other part of head, initial encounter Fracture of nasal bone Qualifiers: Encounter type: initial encounter Fracture type: closed Qualified Code(s): S02.2XXA - Fracture of nasal bones, initial encounter for closed fracture Condition: Stable Prescriptions: No Action aspirin 81 mg tablet,delayed release (DR/EC) 81 mg PO DAILY Eliquis 5 mg tablet 5 mg PO BID Qty: 60 11RF atorvastatin 80 mg tablet 80 mg PO DAILY Qty: 90 3RF spironolactone 25 mg tablet 25 mg PO DAILY Qty: 90 3RF tamsulosin 0.4 mg capsule 0.4 mg PO DAILY Qty: 100 3RF acetaminophen [Tylenol Arthritis Pain] 650 mg tablet extended release 1,300 mg PO Q8H levothyroxine 125 mcg tablet 125 mcg PO DAILY Qty: 90 3RF lisinopril 5 mg tablet 5 mg PO DAILY Qty: 90 3RF ipratropium bromide 21 mcg (0.03 %) spray,non-aerosol 2 spray intranasal TID Qty: 30 5RF Rx Instructions: administer into each nostril lorazepam 0.5 mg tablet 0.5 mg PO .qpm PRN (Reason: sleep) 90 Days Qty: 90 1RF omeprazole 40 mg capsule,delayed release(DR/EC) See Rx Instructions .ROUTE .COMPLEX Qty: 90 3RF Dose Instruction: TAKE ONE CAPSULE BY MOUTH DAILY Rx Instructions: TAKE ONE CAPSULE BY MOUTH DAILY carvedilol 12.5 mg tablet 12.5 mg PO BID Discharge Orders: Discharge ED (Routine); Ordered 01/26/25 Ordered By: Melissa Moreno Referrals: Pooja Pandya MD [Primary Care Provider, Family Practice] Patient Instructions: Nasal Fracture (ED), Fractures - Nasal, Patient Portal & Mallika Instructions Activity Restrictions/Additional Instructions: As we discussed, I have placed a case management referral to get you set up with ENT for further evaluation of your nasal bone fracture. Avoid lifting, bending, forceful coughing or sneezing, or straining as this can cause the nose to bleed. You do have Afrin you can instill in the nares if bleeding begins. You may also hold direct pressure and apply ice. If you cannot bleeding to stop at home you may return to the emergency department. Print Language: Slovenian Coding Level of Care Code ED Speech Instructor for Christiano Roman
--- NOTE | 2025-01-26 15:01 | PC.NURSE ---
wound irrigated and cleaned
[2025-01-26 15:05] VITALS: BP 131/90; PULSE 70; O2SAT 94
--- NOTE | 2025-01-27 09:25 | DCPLANNER ---
faxed ent referral to dr elliott
== END 2025-01-26 15:06 | disposition home or self-care (01) ==
PROVIDERS: Emergency Provider Physician Assistant; PCP Family Medicine
DX: S00.81XA Abrasion of other part of head, initial encounter (principal); S02.2XXA Fracture of nasal bones, initial encounter for closed fracture; W19.XXXA Unspecified fall, initial encounter; Z79.82 Long term (current) use of aspirin; Z79.01 Long term (current) use of anticoagulants; Z87.891 Personal history of nicotine dependence; J44.9 Chronic obstructive pulmonary disease, unspecified; Z95.0 Presence of cardiac pacemaker; I25.10 Atherosclerotic heart disease of native coronary artery without angina pectoris; I11.0 Hypertensive heart disease with heart failure; I50.20 Unspecified systolic (congestive) heart failure; Z85.850 Personal history of malignant neoplasm of thyroid; Z99.81 Dependence on supplemental oxygen
CPT/HCPCS: 70450; 70486; 72125; 99284